=== PATIENT | male | born 1985 | race American Indian/Alaskan Native ===

== ENCOUNTER 2016-09-14 18:31 | Emergency (ER) | payer OTHER ==
[2016-09-14 20:06] VITALS: BP 118/78
--- NOTE | 2016-09-15 07:36 | XRay Report ---
CERVICAL SPINE, 3 views: History: Neck pain. Findings: The vertebral bodies, disk spaces, posterior elements and prevertebral soft tissues are unremarkable. The dens is intact. No acute fracture or malalignment is identified. Impression: 1. No evidence for acute injury to the cervical spine.
--- NOTE | 2016-09-15 07:37 | XRay Report ---
AP PELVIS: History: Injury, hip pain. AP view of the pelvis shows normal pelvic contour and soft tissues. The hips are symmetric and within normal limits as are the sacroiliac joints. IMPRESSION: Normal pelvis.
== END 2016-09-14 23:20 | disposition left against medical advice (07) ==
LOC: ED 18:31
DX: Z04.1 Encounter for examination and observation following transport accident (principal); Z53.21 Procedure and treatment not carried out due to patient leaving prior to being seen by health care provider
CPT/HCPCS: 72040; 72170

== ENCOUNTER 2020-02-10 09:37 | Emergency (ER) | payer OTHER ==
[2020-02-10 09:56] VITALS: BP 145/92
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
== END 2020-02-10 13:27 | disposition home or self-care (01) ==
LOC: ED 09:37
DX: S16.1XXA Strain of muscle, fascia and tendon at neck level, initial encounter (principal); S39.012A Strain of muscle, fascia and tendon of lower back, initial encounter; Z79.899 Other long term (current) drug therapy; V49.49XA Driver injured in collision with other motor vehicles in traffic accident, initial encounter; Y93.89 Activity, other specified; Y92.488 Other paved roadways as the place of occurrence of the external cause; Y99.8 Other external cause status
CPT/HCPCS: 99281; 99282

== ENCOUNTER 2021-04-11 07:56 | Emergency (ER) | payer OTHER ==
--- NOTE | 2021-04-11 08:34 | Emergency Department Report ---
ED General Adult HPI - General Chief complaint: Chest Pain Stated complaint: CHEST PAIN Time Seen by Provider: 04/11/21 08:17 Source: patient Mode of arrival: Ambulatory Limitations: No Limitations - History of Present Illness Initial comments: Patient is 35 years old male with no significant past medical history. Patient presented to the ER complaining of left-sided chest pain, sharp in nature with no radiation. Patient stated that pain started last night. Patient stated that pain increased with inspiration and changing in position. He denied any fever or chills. No cough runny nose or congestion recently. -: Last night Location: chest Radiation: non-radiation Severity scale (0 -10): 5 Consistency: intermittent Associated Symptoms: shortness of breath Treatments Prior to Arrival: none - Related Data Previous Rx's Medication Instructions Recorded Last Taken Type Ketorolac [Toradol] 10 mg PO Q6H PRN #20 tablet 02/10/20 Unknown Rx methOCARBAMOL [Robaxin TAB] 750 mg PO Q8H PRN #30 tablet 02/10/20 Unknown Rx Allergies Allergy/AdvReac Type Severity Reaction Status Date / Time No Known Allergies Allergy Verified 04/11/21 07:58 ED Review of Systems ROS: Stated complaint: CHEST PAIN Other details as noted in HPI Comment: All other systems reviewed and negative Constitutional: denies: chills, fever Respiratory: shortness of breath. denies: cough, SOB with exertion, SOB at rest, wheezing Cardiovascular: chest pain. denies: palpitations, dyspnea on exertion Gastrointestinal: denies: abdominal pain, nausea, vomiting, diarrhea Musculoskeletal: denies: back pain Neurological: denies: headache, weakness, numbness, paresthesias, confusion ED Past Medical Hx - Past Medical History Previous Medical History?: No - Surgical History Past Surgical History?: No - Social History Smoking Status: Never Smoker Substance Use Type: None - Medications Home Medications: Home Medications Medication Instructions Recorded Confirmed Last Taken Type Ketorolac [Toradol] 10 mg PO Q6H PRN #20 tablet 02/10/20 Unknown Rx methOCARBAMOL [Robaxin TAB] 750 mg PO Q8H PRN #30 tablet 02/10/20 Unknown Rx ED Physical Exam - General Limitations: No Limitations General appearance: alert - Head Head exam: Present: atraumatic, normocephalic, normal inspection - Eye Eye exam: Present: normal appearance - ENT ENT exam: Present: normal exam, normal orophraynx, mucous membranes moist - Neck Neck exam: Present: normal inspection, full ROM. Absent: tenderness, meningismus - Respiratory Respiratory exam: Present: normal lung sounds bilaterally. Absent: respiratory distress, wheezes, rales, rhonchi, stridor, chest wall tenderness, accessory muscle use, decreased breath sounds, prolonged expiratory - Cardiovascular Cardiovascular Exam: Present: regular rate, normal rhythm, normal heart sounds - GI/Abdominal GI/Abdominal exam: Present: soft, normal bowel sounds. Absent: distended, te nderness, guarding, rebound, rigid, organomegaly, mass, bruit, pulsatile mass, hernia - Extremities Exam Extremities exam: Present: normal inspection, full ROM, normal capillary refill. Absent: tenderness, pedal edema, joint swelling, calf tenderness - Back Exam Back exam: Present: normal inspection, full ROM. Absent: CVA tenderness (R), CVA tenderness (L) - Neurological Exam Neurological exam: Present: alert, oriented X3, CN II-XII intact, normal gait, reflexes normal. Absent: motor sensory deficit - Psychiatric Psychiatric exam: Present: normal mood - Skin Skin exam: Present: warm, intact, normal color ED Course Vital Signs 04/11/21 04/11/21 08:05 08:07 Temperature 98.4 F 98.4 F Pulse Rate 70 Respiratory 20 20 Rate Blood Pressure 145/82 139/75 O2 Sat by Pulse 95 Oximetry ED Medical Decision Making - Radiology Data Radiology results: report reviewed - Medical Decision Making Patient is 35 years old male with no significant past medical history. Patient presented to the ER complaining of left-sided chest pain, sharp in nature with no radiation. Patient stated that pain started last night. Patient stated that pain increased with inspiration and changing in position. He denied any fever or chills. No cough runny nose or congestion recently. EKG is unremarkable. Chest x-ray showed no acute abnormalities. Patient symptoms most likely related to pleurisy. Patient given prescription for Naprosyn and advised to follow-up with his primary doctor in the next 2 to 3 days and to return to the ER if he develop any new symptoms. Critical care attestation.: If time is entered above; I have spent that time in minutes in the direct care of this critically ill patient, excluding procedure time. ED Disposition Clinical Impression: Acute chest pain, Pleurisy Disposition: HOME / SELF CARE / HOMELESS Is pt being admited?: No Condition: Stable Instructions: Chest Pain (ED), Nonspecific Chest Pain, Adult, Pleurisy, [id number] Referrals: PRIMARY CARE,MD [Primary Care Provider] - 3-5 Days
--- NOTE | 2021-04-11 08:59 | XRay Report ---
CHEST 2 VIEWS INDICATION / CLINICAL INFORMATION: Chest pain. COMPARISON: None available. FINDINGS: SUPPORT DEVICES: None. HEART / MEDIASTINUM: The heart size and pulmonary vasculature are normal. The aorta is normal in natali kierra. LUNGS / PLEURA: No significant pulmonary or pleural abnormality. No pneumothorax. ADDITIONAL FINDINGS: No significant additional findings. IMPRESSION: No acute findings. Signer Name: Christopher Contreras MD Signed: 04/11/2021 8:55 AM Workstation Name: [id number]
[2021-04-11 10:58] VITALS: BP 118/69
--- NOTE | 2021-04-14 08:47 | Electrocardiograph Report ---
[facility] Test Date: 2021-04-11 Test Time: 10:47:32 Pat Name: JULIO WOOD Department: Room: Gender: M Laboratory Monitor: tere : 1985 Requested By: GERRI DUVAL Order Number: [id number] Reading MD: Donell Ham Measurements Intervals Lenore Rate: 62 P: 55 NE: 186 QRS: 52 QRSD: 105 T: 50 QT: 433 QTc: 438 Interpretive Statements Sinus rhythm Normal ECG No previous ECG available for comparison Electronically Signed On 04-14-2021 8:47:18 EST by Donell Ham
== END 2021-04-11 10:57 | disposition home or self-care (01) ==
LOC: ED 07:56
DX: R07.89 Other chest pain (principal)
CPT/HCPCS: 71046; 93005; 99283